=== PATIENT | male | born 1950 | race Caucasian/White ===

== ENCOUNTER 2016-08-29 05:37 | Day surgery (SDC) | payer MEDICARE ==
[2016-08-29] VITALS (9 sets, daily range): BP systolic 125–150; BP diastolic 68–86; PULSE 57–67; RESP 9–17; O2SAT 95–100
[~2016-08-29] VITALS: Ht 177.8 cm; Wt 99.8 kg
[~2016-08-29 05:37] MED LIST: ATRV10T PO; ESOM40CA41 PO; Lactated Ringer's 1,000 ML IV SCH; METO-274 PO; TRAM50TA2 PO
[2016-08-29] MEDS ORDERED: Ondansetron 2 mg/mL 2 mL Inj ONE (05:38)
[2016-08-29] MEDS ORDERED: Neostigmine 1 mg/mL 10 mL Inj ONE (05:38)
[2016-08-29] MEDS ORDERED: Rocuronium 10 mg/mL 5 mL Inj ONE (05:38)
[2016-08-29] MEDS ORDERED: Propofol 10,000 mCg/mL 20 mL Inj ONE (05:38)
[2016-08-29] MEDS ORDERED: fentaNYL-PF 50 mCg/mL 2 mL Inj ONE (05:38)
[2016-08-29] MEDS ORDERED: Dexamethasone 4 mg/mL Inj ONE (05:38)
[2016-08-29] MEDS ORDERED: Glycopyrrolate 0.2 MG/ML 1mL Inj ONE (05:38)
[2016-08-29] MEDS ORDERED: Lidocaine PF 1% 30 mL Inj ONE (05:38)
[2016-08-29] MEDS ORDERED: Lactated Ringer's 1,000 ML IV ONE (05:58)
[2016-08-29] MEDS: CeFAZolin Inj 2 GM in IV Premix 1 EACH IV SCH ×2 (07:15→07:35)
--- NOTE | 2016-08-29 07:22 | PCM.HPANE ---
Patient Data Date of Service: August 29, 2016 Surgeon Admitting Provider: Attending Provider:Juanita Savage MD Primary Care Physician:Luís Edmonds MD Other Provider:Suyapa Vogt Anesthesia Reason for Visit Bladder Tumor Ht/WT & BMI Height (Feet): 5 Height (Inches): 10.00 Weight (Kilograms): 99.790 Body Mass Index 31.00 Allergies Uncoded Allergies: BCG LIVE VACCINE (Allergy, Unknown, 04/18/16) Past Anesthesia History Anesthesia History: Denies:: Anesthesia Reactions, Malignant Hyperthermia Diabetes History Hx Diabetes?: No Type of Diabetes: Type II Glycemic Control: Diet Controlled MRSA MRSA: No Medications Hypertension Medication: Yes Home Meds Incl Beta Vero: Yes (METROPOLOL) Date Beta Vero Taken: August 28, 2016 Time Beta Vero Taken: 1999 Reported Medications Tramadol 50 Mg [id number] Mg PO Q6H PRN For Pain Ref 0 08/26/16 Atorvastatin (Lipitor)10 Mg Tab10 Mg PO DAILY Ref 0 08/26/16 Esomeprazole Magnesium (Nexium)40 Mg Capsule.dr40 Mg PO DAILY Ref 0 08/26/16 Metoprolol Succinate ER 100 Mg Tab.er.19d554 Mg PO DAILY Ref 0 08/26/16 Discontinued Reported Medications Metoprolol Succinate ER 100 Mg Tab.er.18e607 Mg PO DAILY Ref 0 04/16/16 Omeprazole 20 Mg Tablet.dr20 Mg PO DAILY 04/16/16 Atorvastatin Calcium 10 Mg Rsveou02 Mg PO DAILY 30 Days Ref 0 05/06/14 Tramadol 50 Mg Kxzpdc07 Mg PO Q6H PRN For Pain Ref 0 05/06/14 History History of ENT Problems?: No HEENT History: Denies:: Sinus Problem Denture Type: None Teeth Condition: Within Normal Limits Hx of Heart Problems?: Yes Cardiovascular History: Positive for:: Chest Pain (2009-MPS & EKG WNL) Hypertension Denies:: Irregular Heartbeat Hx of Respiratory Problem?: No Respiratory History: Denies:: Use of C-PAP Machine Hx Neurologic Problems?: No Hx of GI Problems?: Yes Hx of Problems?: Yes Other Pertinent History: recurrent bladder tumor current admission problem , last surgery here 03/2016 Male Hx: Positive for:: Prostate Problems (HX PROSTATE CA) Denies:: Scrotal Mass Testicular Surgery Skin History: Denies:: History Skin Disorders? Pressure Ulcers Hx Musculoskeletal Problems?: No Hx of Psycho/Social Problems?: Yes Psycho Social History: Positive for:: Anxiety Hx Depression Hx Surgeries?: Yes (cysto) Hx Any Other Health Problems?: Yes Other History: Positive for:: Cancer (bladder, prostate) Hospitalization Denies:: Endocrine Disease Thyroid Disease History Blood Transfusions: Denies:: Blood Transfusions Hx Diabetes: No Hx Substance Use: No Smoking Status: Former Smoker Have You Smoked inLast 12 mo: No Stop/Bang S-Snoring: Do You Snore Loudly: No T-Tired: feel tired, fatigued: No O-Obsered: Observed not breath: No P-Blood Pressure: treated: Yes B- Body Mass Index > 35 kg/m2: No A- Age over 50: Yes N- Neck Large Circumference: No G- Gender Male: Yes JEANCARLOS Total Score: 3 JEANCARLOS Risk Assessment: Low Risk, <3 Yes Risk Assessment Category Category 1A: Patient has history of documented sleep apnea, and HAS NOT received any narcotic, sedative or anesthesia administration during this stay. Category 1B: Patient has history of documented sleep apnea, and HAS received any narcotic , sedative or anesthesia administration during this stay Category 2: Patient has SUSPECTED Obstructive Sleep Apnea, and HAS received any narcotic , sedative or anesthesia administration during this stay. Category 3: Patient has SUSPECTED Obstructive Sleep Apnea and HAS NOT received narcotic, sedative or anesthesia administration during this stay. Category 4: Outpatient in Procedural Areas with known sleep apnea or who screen positive for High Risk via the STOP/BANG questionnaire. Exam Exam Vital Signs Vital Signs Date Time Temp Pulse Resp B/P Pulse Ox O2 Delivery O2 Flow Rate FiO2 08/29/16 05:59 35.9 59 17 137/79 97 Room Air General Appearance: Alert, Oriented X3, Cooperative, No Acute Distress HEENT/AIRWAY: MP 2 Lungs: Clear to Auscultation, Normal Air Movement Heart: Exam Unremarkable, Regular Rate/Rhythm, No Murmurs/Rubs/Gallops Meds/Labs/Diagnostics Admission Meds Current Medications Lactated Ringer's (Lr) 1,000 ml @ ud STK-MED ONCE IV Last administered on 08/29t 05:58; Start 08/29/16 at 05:58; Stop 08/29/16 at 05:59; Status DC Plan Impression Patient chart reviewed, patient interviewed and anesthestic plan with risks, benefits, and alternatives discussed, and informed consent obtained. NPO per Anesth. Guidelines: Yes ASA Physical Status: ASA2 Mod Systemic Disease Anesthetic Plan: GA Bene/Risks/Altern/Consents: Yes HP Complete Prior to Induction: Yes Osmar Rivera MD August 29, 2016 07:22
[2016-08-29] MEDS ORDERED: Lactated Ringer's 1,000 ML IV SCH (07:46)
[2016-08-29] MEDS ORDERED: Lactated Ringer's 500 ML IV PRN (07:46)
[2016-08-29] MEDS ORDERED: MetoCLOpramide 5 mg/mL 2 mL Inj IVPUSH PRN (07:50)
[2016-08-29] MEDS ORDERED: HYDROmorphone 1 mg/mL Inj IVPUSH PRN (07:50)
[2016-08-29] MEDS ORDERED: Ondansetron 2 mg/mL 2 mL Inj IVPUSH PRN (07:50)
[2016-08-29] MEDS ORDERED: fentaNYL-PF 50 mCg/mL 2 mL Inj IVPUSH PRN (07:50)
[2016-08-29] MEDS ORDERED: Phenylephrine 10,000 mCg/mL Inj IVPUSH PRN (07:50)
[2016-08-29] MEDS ORDERED: Atropine 0.4 mg/mL Inj IVPUSH PRN (07:50)
[2016-08-29] MEDS ORDERED: Labetalol 5 mg/mL 4 mL Inj IV PRN (07:50)
[2016-08-29] MEDS ORDERED: hydrALAZINE 20 mg/mL Inj IVPUSH PRN (07:50)
[2016-08-29] MEDS ORDERED: EPHEDrine Sulfate 50 mg/mL Inj IVPUSH PRN (07:50)
[2016-08-29] MEDS ORDERED: oxyCODONE-Acetamin 5-325 mg Tablet PO PRN (08:20)
--- NOTE | 2016-08-29 08:24 | PCM.ANEP1 ---
Post Anesthesia Phase 1 PACU Phase 1 Assessment Date of Service: August 29, 2016 Vital Signs 36.9 139/77 63 9 100% FM Anesthetic Administered: GA Level of Alertness: Sleepy, easy to arouse BENITEZ's with Equal Strength: Yes Pain: No Nausea or Vomiting: No Cardiovascular Function and Hy: Yes Oxygen Delivery: Simple Mask Lungs: Clear to Auscultation, Normal Air Movement Complications: No Follow up Care: No Patient Instructions Provided: Yes Osmar Rivera MD August 29, 2016 08:24
[2016-08-29] MEDS ORDERED: Belladonna Alk-Opium 60 mg Rectal Suppository RECTAL SCH (08:30)
--- NOTE | 2016-08-29 09:15 | OP ---
[address] [address] OPERATIVE REPORT PATIENT: CARLIN MOORE : 1950 MR#: [id number] ADMIT: 08/29/2016 JOB ID: [id number] DATE OF SURGERY: 08/29/2016 SURGEON: Juanita Savage M.D. PREOPERATIVE DIAGNOSIS(ES): Transitional cell carcinoma of the bladder. POSTOPERATIVE DIAGNOSIS(ES): Transitional cell carcinoma of the bladder. PROCEDURES: Cystoscopy, bladder biopsy and laser TUR bladder tumor, medium, largest tumor 2.5 cm, number of tumors present 8. ANESTHESIA: General anesthetic, Dr. Rivera. DESCRIPTION OF PROCEDURE: Under general anesthetic, the patient was placed in the lithotomy position. Genitalia prepped and draped in a sterile manner. A 22-Khmer cystoscope was introduced through a normal urethra. Multiple tumors were present across the dome of the bladder. The largest tumor was selected and front desk representative biopsies were taken using the cup biopsy forceps. A straight laser fiber was then placed through the laser cystoscope and with significant suprapubic pressure, the remaining tumors were resected. The patient tolerated the procedure well. Following resection it was elected not to leave a Marroquin catheter in place. The patient tolerated the procedure well and left the operating room in good condition.
--- NOTE | 2016-08-30 11:08 | PATH ---
SURGICAL PATHOLOGY Attending Physician:Juanita Savage MD ([place] CASE STATUS: Signed Out PATIENT NAME: CARLIN MOORE PID: [id number] : 1950 DATE COLLECTED:08/29/2016 18:02 SPECIMEN: Bladder, Biopsy CLINICAL HISTORY: BLADDER TUMOR 1). BLADDER TUMOR DOME FINAL DIAGNOSIS: 1.BIOPSY, URINARY BLADDER DOME: PAPILLARY UROTHELIAL CARCINOMA, LOW-GRADE. NEGATIVE FOR EVIDENCE OF INVASION OF LAMINA PROPRIA. NO MUSCULARIS PROPRIA PRESENT. ICD10 CODE C67.1 GROSS DESCRIPTION: The specimen is received in one formalin filled container labeled with the patient's name, sublabeled "bladder tumor dome" and consists of 2 portions of tissue which aggregate to 0.4 x 0.3 x 0.3 CM. The specimen is entirely submitted in one cassette. 08/29/2016 [facility] MICRO DESCRIPTION: See diagnosis. ICD-9 CODES: CPT CODES: 1: 14628 Electronically Signed Out Ricardo Queen MD [facility] Pathology [facility] [address], [place] [address] Technical component performed at [facility], [facility] [address], [address]
== END 2016-08-29 23:59 | disposition home or self-care (01) ==
LOC: SAS 05:37
PROVIDERS: ATTEND Urology
DX: C67.2 Malignant neoplasm of lateral wall of bladder (principal); I10 Essential (primary) hypertension; E11.9 Type 2 diabetes mellitus without complications; F41.8 Other specified anxiety disorders; Z87.891 Personal history of nicotine dependence; Z85.46 Personal history of malignant neoplasm of prostate
CPT/HCPCS: 52235; J0690; J1100; J2405; J2710; J3010; J7120